=== PATIENT | female | born 1945 | race Hispanic/Latino ===

== ENCOUNTER 2019-12-02 13:52 | Emergency (ER) | payer MEDICARE ==
[2019-12-02 14:11] LABS: BASOPHILS % (AUTO) 0.3 % (0.0-5.0); EOSINOPHILS % (AUTO) 1.3 % (0.0-8.0); LYMPHOCYTES % (AUTO) 34.9 % (21.0-51.0); MEAN CORPUSCULAR HEMOGLOBIN 27.7 pg (27.0-33.0); MEAN CORPUSCULAR HGB CONC 32.5 g/dL (32.0-36.0); MEAN CORPUSCULAR VOLUME 85.3 fL (79-99); NEUTROPHILS % (AUTO) 57.2 % (40.0-77.0); PLATELET COUNT (AUTO) 356 K/uL (130-400); RED BLOOD CELL COUNT(AUTO) 4.22 MIL/uL (4.00-5.50); WHITE BLOOD COUNT (AUTO) 12.1 K/uL (4.8-10.8)
[2019-12-02 14:25] LABS: CREATININE 0.7 mg/dL (0.5-1.5); INR 0.92 (0.85-1.15); PARTIAL THROMBOPLASTIN TIME 27.3 SEC (26.3-35.5); POTASSIUM 3.5 mmol/L (3.5-5.1)
[2019-12-02 14:30] LABS: ALBUMIN 3.8 g/dL (3.5-5.0); BILIRUBIN,TOTAL 0.3 mg/dL (0.2-1.0); TOTAL PROTEIN, SERUM 7.5 g/dL (6.0-8.3)
[2019-12-02] MEDS ORDERED: ONDANSETRON HCL 4 MG/2 ML VIAL ONE (14:34)
== END 2019-12-02 16:11 | disposition short-term general hospital (02) ==
LOC: EDH 13:52
DX: I61.8 Other nontraumatic intracerebral hemorrhage (principal); R47.81 Slurred speech; M19.90 Unspecified osteoarthritis, unspecified site
CPT/HCPCS: 36415; 70450; 71045; 80053; 82550; 82948; 83721; 84484; 85025; 85610; 85730; 93005; 96374; 99291; J2405

== ENCOUNTER 2019-12-20 21:25 | Emergency (ER) | payer MEDICARE ==
[2019-12-20 22:14] LABS: BASOPHILS % (AUTO) 0.4 % (0.0-5.0); EOSINOPHILS % (AUTO) 2.1 % (0.0-8.0); HEMATOCRIT 35.3 % (36-48); LYMPHOCYTES % (AUTO) 37.3 % (21.0-51.0); MEAN CORPUSCULAR HEMOGLOBIN 28.1 pg (27.0-33.0); MEAN CORPUSCULAR HGB CONC 32.6 g/dL (32.0-36.0); MEAN CORPUSCULAR VOLUME 86.3 fL (79-99); MONOCYTES % (AUTO) 6.8 % (3.0-13.0); NEUTROPHILS % (AUTO) 53.2 % (40.0-77.0); PLATELET COUNT (AUTO) 356 K/uL (130-400); RED BLOOD CELL COUNT(AUTO) 4.09 MIL/uL (4.00-5.50); RED CELL DISTRIBUTION WIDTH 14.5 % (11.0-15.5); WHITE BLOOD COUNT (AUTO) 8.4 K/uL (4.8-10.8)
[2019-12-20 22:33] LABS: CREATININE 0.8 mg/dL (0.5-1.5); POTASSIUM 4.5 mmol/L (3.5-5.1)
[2019-12-20 22:34] LABS: INR 0.91 (0.85-1.15); PARTIAL THROMBOPLASTIN TIME 25.8 SEC (26.3-35.5); PROTHROMBIN TIME 9.9 SEC (9.6-11.6)
[2019-12-20 22:38] LABS: ALBUMIN 3.9 g/dL (3.5-5.0); BILIRUBIN,TOTAL 0.2 mg/dL (0.2-1.0); TOTAL PROTEIN, SERUM 7.5 g/dL (6.0-8.3)
[2019-12-20 22:46] LABS: B-TYPE NATRIURETIC PEPTIDE 31 pg/mL (0-100)
== END 2019-12-20 23:25 | disposition home or self-care (01) ==
LOC: EDH 21:25
DX: R04.0 Epistaxis (principal); N95.1 Menopausal and female climacteric states; R03.0 Elevated blood-pressure reading, without diagnosis of hypertension; M19.90 Unspecified osteoarthritis, unspecified site; Z90.49 Acquired absence of other specified parts of digestive tract; Z90.710 Acquired absence of both cervix and uterus; Z79.899 Other long term (current) drug therapy
CPT/HCPCS: 36415; 71045; 80053; 82550; 83605; 83880; 84484; 85025; 85610; 85730; 93005

== ENCOUNTER 2020-04-29 01:46 | Inpatient (IN) | payer MEDICARE ==
[~2020-04-29] VITALS: Ht 149.9 cm; Wt 60.8 kg
[2020-04-29 02:12] LABS: BASOPHILS % (AUTO) 0.3 % (0.0-5.0); EOSINOPHILS % (AUTO) 2.4 % (0.0-8.0); HEMATOCRIT 33.6 % (36-48); LYMPHOCYTES % (AUTO) 29.1 % (21.0-51.0); MEAN CORPUSCULAR HEMOGLOBIN 29.1 pg (27.0-33.0); MEAN CORPUSCULAR HGB CONC 33.6 g/dL (32.0-36.0); MEAN CORPUSCULAR VOLUME 86.6 fL (79-99); NEUTROPHILS % (AUTO) 61.4 % (40.0-77.0); PLATELET COUNT (AUTO) 338 K/uL (130-400); RED BLOOD CELL COUNT(AUTO) 3.88 MIL/uL (4.00-5.50); RED CELL DISTRIBUTION WIDTH 13.5 % (11.0-15.5); WHITE BLOOD COUNT (AUTO) 10.6 K/uL (4.8-10.8)
[2020-04-29 02:23] LABS: CREATININE 0.9 mg/dL (0.5-1.5); POTASSIUM 3.5 mmol/L (3.5-5.1)
[2020-04-29] MEDS ORDERED: ONDANSETRON HCL 4 MG/2 ML VIAL ONE (02:24)
[2020-04-29] MEDS ORDERED: MORPHINE SULFATE 2 MG/ML 1ML SYG ONE ×2 (02:25→07:52)
[2020-04-29 02:26] LABS: INR 0.95 (0.85-1.15); PARTIAL THROMBOPLASTIN TIME 24.9 SEC (26.3-35.5); PROTHROMBIN TIME 10.3 SEC (9.6-11.6)
[2020-04-29 02:27] LABS: ALBUMIN 4.1 g/dL (3.5-5.0); BILIRUBIN,TOTAL 0.3 mg/dL (0.2-1.0); TOTAL PROTEIN, SERUM 7.2 g/dL (6.0-8.3)
[2020-04-29] MEDS ORDERED: MORPHINE SULFATE 4 MG/1ML SYG ONE (04:04)
[2020-04-29] MEDS ORDERED: DIPHENHYDRAMINE HCL 25 MG CAPSULE PO PRN (04:30)
[2020-04-29] MEDS ORDERED: ACETAMINOPHEN 325 MG TAB PO PRN ×2 (04:30)
[2020-04-29] MEDS ORDERED: NITROGLYCERIN 0.4 MG SL TAB SL PRN (04:30)
[2020-04-29] MEDS ORDERED: HYDROCODONE/ACETAMINOPHEN 5/325 MG TAB PO PRN (04:30)
[2020-04-29 05:52] LABS: CREATINE KINASE, TOTAL 92 U/L (21-232); MYOGLOBIN 51 ng/mL (10-92); TROPONIN I < 0.04 ng/mL (0.00-0.06)
[2020-04-29] MEDS ORDERED: SODIUM CHLORIDE 0.9% 1000ML 1,000 ML IV ONE (08:22)
[2020-04-29] MEDS ORDERED: ENOXAPARIN SODIUM 30 MG/0.3 ML SQ SCH (09:00)
[2020-04-29] MEDS ORDERED: FENTANYL CITRATE PF 50 MCG/1 ML 2ML VIAL ONE (13:44)
[2020-04-29] MEDS: SODIUM CHLORIDE 0.9% 1000ML 1,000 ML IV SCH ×3 (14:18→23:23)
[2020-04-29] MEDS ORDERED: LIDOCAINE 5% TOPICAL PATCH TP ONE (17:52)
[2020-04-29 19:30] VITALS: BP 127/52
[2020-04-29] MEDS: HYDROCODONE/ACETAMINOPHEN 5/325 MG TAB PO PRN (19:52)
[2020-04-29] MEDS: FAMOTIDINE 20MG TAB 20 MG TAB PO SCH ×2 (19:52→21:32)
[2020-04-29] MEDS ORDERED: HYDR200T4 PO (20:05)
[2020-04-29] MEDS ORDERED: PANT40TA54 PO (20:10)
[2020-04-29] MEDS ORDERED: TOPI50TA24 PO (20:10)
[2020-04-29] MEDS ORDERED: CYAN-35 PO (20:10)
[2020-04-29] MEDS ORDERED: FLU15OS OU (20:10)
[2020-04-29] MEDS ORDERED: CITA-107 PO (20:10)
[2020-04-29] MEDS ORDERED: FOLI0.8C PO (20:10)
[2020-04-29] MEDS ORDERED: NAPR-1023 PO (20:10)
[2020-04-29] MEDS: MORPHINE SULFATE 2 MG/ML 1ML SYG IVP PRN (21:32)
[2020-04-29 23:52] VITALS: BP 111/54
[2020-04-30] VITALS (23 sets, daily range): BP systolic 94–127; BP diastolic 36–70
[2020-04-30] MEDS: MORPHINE SULFATE 2 MG/ML 1ML SYG IVP PRN ×3 (01:31→06:06)
[2020-04-30 05:53] LABS: HEMATOCRIT 31.5 % (36-48); MEAN CORPUSCULAR HEMOGLOBIN 28.5 pg (27.0-33.0); MEAN CORPUSCULAR HGB CONC 32.1 g/dL (32.0-36.0); PLATELET COUNT (AUTO) 278 K/uL (130-400); RED BLOOD CELL COUNT(AUTO) 3.54 MIL/uL (4.00-5.50); RED CELL DISTRIBUTION WIDTH 13.7 % (11.0-15.5); WHITE BLOOD COUNT (AUTO) 7.9 K/uL (4.8-10.8)
[2020-04-30 06:07] LABS: ALBUMIN 2.7 g/dL (3.5-5.0); BILIRUBIN,TOTAL 0.3 mg/dL (0.2-1.0); CREATININE 0.8 mg/dL (0.5-1.5); MAGNESIUM 1.7 mg/dL (1.80-2.40); POTASSIUM 3.9 mmol/L (3.5-5.1); TOTAL PROTEIN, SERUM 5.6 g/dL (6.0-8.3)
[2020-04-30] MEDS: ONDANSETRON HCL 4 MG/2 ML VIAL IV PRN ×3 (06:37→20:43)
[2020-04-30 07:18] LABS: LYMPHOCYTES % (MANUAL) 22 % (22-44); MAN.DIFF COMMENT-IMPRESSION MANUAL DIFFERENTIAL; MONOCYTES % (MANUAL) 7 % (2-9); PLATELET MORPHOLOGY COMMENT ADEQUATE; SEGMENTED NEUTROPHILS % 71 % (40-70)
[2020-04-30] MEDS ORDERED: MAGNESIUM 2GM PREMIX 50ML 50 ML IV PRN (08:15)
[2020-04-30] MEDS: SODIUM CHLORIDE 0.9% 1000ML 1,000 ML IV SCH ×2 (08:38→20:23)
[2020-04-30] MEDS: HYDROXYCHLOROQUINE SULFATE 200 MG TAB PO SCH (09:00)
[2020-04-30] MEDS: FOLIC ACID 1 MG TABLET PO SCH (09:00)
[2020-04-30] MEDS: [UNRECOGNIZED DRUG - OTHER] OU SCH ×4 (09:00→20:23)
[2020-04-30] MEDS: CYANOCOBALAMIN (VITAMIN B-12) 1,000 MCG TABLET PO SCH (09:00)
[2020-04-30] MEDS: FAMOTIDINE 20MG TAB 20 MG TAB PO SCH ×2 (09:00→20:33)
[2020-04-30] MEDS ORDERED: CEFAZOLIN SODIUM 1 GM VIAL ONE (13:13)
[2020-04-30] MEDS ORDERED: LIDOCAINE PF 2% 5ML ABBOJECT ONE (13:26)
[2020-04-30] MEDS ORDERED: SUCCINYLCHOLINE CHLORIDE 20 MG/ML 10 ML VIAL ONE (13:26)
[2020-04-30] MEDS ORDERED: KETAMINE 50MG/ML SYRINGE 50 MG/ML DISP.SYRIN IV ONE (13:27)
[2020-04-30] MEDS ORDERED: PROPOFOL 10 MG/ML 20ML VIAL IV ONE (13:27)
[2020-04-30] MEDS ORDERED: ROCURONIUM 10MG/1ML SYR 10 MG/ML ML ONE (13:40)
[2020-04-30] MEDS ORDERED: EPHEDRINE SULFATE 50 MG/ML AMPULE ONE (13:51)
[2020-04-30] MEDS ORDERED: ROPIVACAINE 0.5% 5MG/ML 30ML IJ ONE (14:32)
[2020-04-30] MEDS ORDERED: GLYCOPYRROLATE 1 MG/5 ML SYRINGE ONE (14:35)
[2020-04-30] MEDS ORDERED: NEOSTIGMINE 5MG/5ML SYR IV ONE (14:35)
[2020-04-30] MEDS ORDERED: ONDANSETRON HCL 4 MG/2 ML VIAL ONE (14:46)
--- NOTE | 2020-04-30 17:11 | NUR ---
DCP IA done by Asif Vincent RN. As per Asif pt is very independent prior to admission, lives at home alone, family lives close by. Denies any equipments/services. Feels safe to go back home, still drives, family able to assist with transportation and needs as necessary. Pt and family open to rehab if necessary vs home w/HH. DC plan to home w/HH vs SNF/IRU. Will await PT notes and MD recommendations. CM to continue to follow up. Addendum: 04/30/20 at 1714 by WAN MENA LVN CM Amended: Links added.
[2020-04-30] MEDS: HYDROCODONE/ACETAMINOPHEN 5/325 MG TAB PO PRN (18:51)
[2020-04-30] MEDS ORDERED: HYDROMORPHONE HCL 0.5 MG/0.5 ML ML ONE (19:10)
[2020-04-30] MEDS ORDERED: HYDROMORPHONE HCL 0.5 MG/0.5 ML ML IVP PRN (19:15)
[2020-04-30] MEDS: TOPIRAMATE 100 MG TAB PO SCH (20:33)
[2020-04-30] MEDS: HYDROMORPHONE 1 MG/1 ML AMP IVP PRN ×2 (20:35→23:39)
[2020-04-30] MEDS: CEFAZOLIN SODIUM 1 GM VIAL IVP SCH (23:16)
[2020-05-01] VITALS: BP 111/56
[2020-05-01 04:00] VITALS: BP 109/51
[2020-05-01] MEDS: HYDROCODONE/ACETAMINOPHEN 5/325 MG TAB PO PRN ×2 (04:06→11:40)
[2020-05-01 04:11] LABS: BASOPHILS % (AUTO) 0.2 % (0.0-5.0); EOSINOPHILS % (AUTO) 0.3 % (0.0-8.0); HEMATOCRIT 29.2 % (36-48); LYMPHOCYTES % (AUTO) 12.6 % (21.0-51.0); MEAN CORPUSCULAR HEMOGLOBIN 28.7 pg (27.0-33.0); MEAN CORPUSCULAR HGB CONC 32.2 g/dL (32.0-36.0); MONOCYTES % (AUTO) 6.2 % (3.0-13.0); NEUTROPHILS % (AUTO) 80.5 % (40.0-77.0); PLATELET COUNT (AUTO) 255 K/uL (130-400); RED BLOOD CELL COUNT(AUTO) 3.28 MIL/uL (4.00-5.50); RED CELL DISTRIBUTION WIDTH 13.5 % (11.0-15.5); WHITE BLOOD COUNT (AUTO) 9.7 K/uL (4.8-10.8)
[2020-05-01 04:29] LABS: ALBUMIN 2.6 g/dL (3.5-5.0); BILIRUBIN,TOTAL 0.7 mg/dL (0.2-1.0); CREATININE 0.6 mg/dL (0.5-1.5); MAGNESIUM 2.1 mg/dL (1.80-2.40); PHOSPHORUS 2.6 mg/dL (2.5-4.9); POTASSIUM 3.8 mmol/L (3.5-5.1); TOTAL PROTEIN, SERUM 5.6 g/dL (6.0-8.3)
[2020-05-01] MEDS: SODIUM CHLORIDE 0.9% 1000ML 1,000 ML IV SCH ×2 (05:52→13:10)
[2020-05-01] MEDS: CEFAZOLIN SODIUM 1 GM VIAL IVP SCH ×2 (05:52→13:52)
[2020-05-01 08:12] VITALS: BP 98/52
[2020-05-01] MEDS: HYDROXYCHLOROQUINE SULFATE 200 MG TAB PO SCH (08:20)
[2020-05-01] MEDS: CYANOCOBALAMIN (VITAMIN B-12) 1,000 MCG TABLET PO SCH (08:20)
[2020-05-01] MEDS: FAMOTIDINE 20MG TAB 20 MG TAB PO SCH ×2 (08:20→19:30)
[2020-05-01] MEDS: FOLIC ACID 1 MG TABLET PO SCH (08:20)
[2020-05-01] MEDS: [UNRECOGNIZED DRUG - OTHER] OU SCH ×4 (08:28→19:38)
[2020-05-01 11:52] VITALS: BP 95/45
--- NOTE | 2020-05-01 15:00 | NUR ---
CM Note: [facility] and [facility] pending approval CM met with pt discussed MD recommendations for possible placement as pt lives alone, pt verbalized she does not want to go to a rehab facility, she prefers to go back home and has family members that is available if needed. Informed pt will need DME at home, standard walker no wheels and 3 in 1 chair. Pt agreeable for home w/home health and DME. Asked patient if it is ok to call daughter Leena Guzman on facesheet and discuss POC, pt agreeable. Spoke to Leena Guzman in patient's room updated w/POC and patient's decision. Asked daughter if patient will have family members available at home to assist, as per Leena yes family members will be available to assist patient. Made aware pt declined placement and agreeable only to go back home. Daughter agreeable w/patient's decision, given in [id number], per Leena [facility] would be preferred and to inform Judith w/[facility], also agreeable for [facility] for standard walker no wheels and 3 in 1 chair. Shantanu signed for [facility] and [facility]. Faxed order, clinicals, PT to [facility], confirmation received. Spoke to Vaishnavi made aware of new referral and dcp tomorrow. Pt pending approval. Faxed order, clincials, PT to [facility], confirmation received. Spoke to Fernanda [facility], made aware dcp once pt DME received. Primary nurse made aware of above. CM to continue to follow up.
--- NOTE | 2020-05-01 15:49 | NUR ---
dr jiménez has been informed of the results of the radiology test performed pending his anticoagulant recomendation
--- NOTE | 2020-05-01 16:00 | NUR ---
i spoke to dr jiménez on the phone inregards to pt's needing anticoagulation and he stated that he called the orthopedic surgeon and gave him his recomendations that pt is high risk for brain rebleed if given anticoagulants but may give if deems necessary and family is aware of the risk. dr jiménez stated he also spoke to the pt's daughter and informed her of this; i have called dr garcia and informed him of this conversation.
[2020-05-01 16:46] VITALS: BP 119/58
--- NOTE | 2020-05-01 17:59 | NUR ---
Daughter of Brandi Childers has been contacted on 05/01/2020 about the patient. She has been updated on todays patient care, how the patient tolerated medications and the plan of care that was prescribed. Daughter was asked if she had any further questions and she stated that she was all up to date on todays care.
[2020-05-01 18:00] VITALS: BP 124/65
--- NOTE | 2020-05-01 18:02 | NUR ---
Request for medical record sheet filled out and signed by patient. Received information from [facility] and Dr. Barreto was notified of the results.
[2020-05-01] MEDS ORDERED: IBUPROFEN 800 MG TAB ONE (19:27)
[2020-05-01] MEDS ORDERED: IBUPROFEN 800 MG TAB PO PRN (19:30)
[2020-05-01] MEDS: TOPIRAMATE 100 MG TAB PO SCH (19:30)
[2020-05-01] MEDS: ONDANSETRON HCL 4 MG/2 ML VIAL IV PRN (19:30)
[2020-05-01] MEDS: CEPHALEXIN 500 MG CAPSULE PO SCH (21:30)
[2020-05-02] VITALS: BP 121/50
[2020-05-02 04:00] VITALS: BP 132/75
[2020-05-02 06:52] LABS: BASOPHILS % (AUTO) 0.4 % (0.0-5.0); HEMATOCRIT 26.1 % (36-48); LYMPHOCYTES % (AUTO) 12.6 % (21.0-51.0); MEAN CORPUSCULAR HEMOGLOBIN 28.7 pg (27.0-33.0); MEAN CORPUSCULAR HGB CONC 32.6 g/dL (32.0-36.0); MEAN CORPUSCULAR VOLUME 88.2 fL (79-99); MONOCYTES % (AUTO) 8.5 % (3.0-13.0); PLATELET COUNT (AUTO) 223 K/uL (130-400); RED BLOOD CELL COUNT(AUTO) 2.96 MIL/uL (4.00-5.50); RED CELL DISTRIBUTION WIDTH 13.4 % (11.0-15.5); WHITE BLOOD COUNT (AUTO) 10.5 K/uL (4.8-10.8)
[2020-05-02 07:10] LABS: ALBUMIN 2.2 g/dL (3.5-5.0); BILIRUBIN,TOTAL 0.5 mg/dL (0.2-1.0); CREATININE 0.7 mg/dL (0.5-1.5); POTASSIUM 3.5 mmol/L (3.5-5.1); TOTAL PROTEIN, SERUM 5.5 g/dL (6.0-8.3)
[2020-05-02 08:17] VITALS: BP 118/58
[2020-05-02] MEDS: FOLIC ACID 1 MG TABLET PO SCH (08:42)
[2020-05-02] MEDS: HYDROXYCHLOROQUINE SULFATE 200 MG TAB PO SCH (08:42)
[2020-05-02] MEDS: [UNRECOGNIZED DRUG - OTHER] OU SCH ×3 (08:43→16:29)
[2020-05-02] MEDS: CEPHALEXIN 500 MG CAPSULE PO SCH (08:43)
[2020-05-02] MEDS: PANTOPRAZOLE SODIUM 40 MG TABLET.DR PO SCH ×2 (08:43→16:27)
[2020-05-02] MEDS: FAMOTIDINE 20MG TAB 20 MG TAB PO SCH (08:43)
[2020-05-02] MEDS: CYANOCOBALAMIN (VITAMIN B-12) 1,000 MCG TABLET PO SCH (08:43)
[2020-05-02] MEDS: HYDROCODONE/ACETAMINOPHEN 5/325 MG TAB PO PRN ×2 (08:48→16:29)
[2020-05-02] MEDS ORDERED: ASPIRIN 325MG EC TAB 325 MG TABLET.DR PO SCH (09:00)
--- NOTE | 2020-05-02 11:10 | NUR ---
CM Note: [facility] denial, [facility] pending approval and delivery for standard walker no wheels and 3in1 chair. CM spoke to [facility], unable to provider DME as pt's insurance coverage does not allow it, pt is under [facility]. CM met with pt made aware of the above, agreeable for any In network DME that will approve. Faxed order and clinicals to [facility], confirmation received. Spoke to Avila will check benefit. Aware dc plan today/once DME delivered. Pt pending approval and delivery for standard walker no wheels and 3 in 1 chair. Primary nurse made aware of above. CM to cont to follow up.
--- NOTE | 2020-05-02 11:29 | NUR ---
Castaneda catheter removed. 400 cc documented. Patient DVT.
[2020-05-02 11:46] VITALS: BP 102/58
--- NOTE | 2020-05-02 13:27 | NUR ---
CM Note: [facility] approval CM spoke to Vaishnavi [facility], pt has approval. Primary nurse aware. Safe to DC once DME has approval and delivered standard walker no wheels and 3in1 chair in pt's room. CM to continue to follow up.
--- NOTE | 2020-05-02 15:38 | NUR ---
CM Note: [facility] approval, en route to deliver DME CM spoke to [facility], pt has approval for standard walker no wheels and 3in1 chair, currently on his way to deliver from [facility] 45min. Primary nurse made aware. Safe to DC once DME delivered. Primary nurse aware. CM to cont to follow.
[2020-05-02 16:42] VITALS: BP 111/56
[2020-05-02] MEDS ORDERED: LUBIPROSTONE 24 MCG CAP PO SCH (16:45)
--- NOTE | 2020-05-02 17:00 | NUR ---
CM Note: [facility] delivered DME CM verified DME standard walker no wheels, 3 in 1 chair delivered, picked up from ED and dropped off in pt's room. Pt safe to DC via private car. Primary nurse aware. CM to cont to follow up.
--- NOTE | 2020-05-02 17:45 | NUR ---
DISCHARGE PATIENT GIVEN DISCHARGE INSTRUCTIONS AND EDUCATION ON FOLLOW UP APPOINTMENTS, KEEP DRESSING CLEAN AND DRY, NEW RX (KEFLEX, TRAMADOL), AND HOME HEALTH. PATIENT VERBALIZED UNDERSTANDING OF ALL EDUCATION GIVEN VIA TEACH BACK. NO DISTRESS NOTED UPON DISCHARGE. PATIENT LEFT VIA WHEELCHAIR, FAMILY AT SIDE, IV DISCONTINUED, CATHETER INTACT.
== END 2020-05-02 17:50 | disposition home health service (06) | DRG 470 ==
LOC: EDH 01:46 → EDHIP 04:15 → 3AH 19:32
PROVIDERS: ADMIT Family Medicine; ATTEND Family Medicine
PROC: 0SRS039 Replacement of Left Hip Joint, Femoral Surface with Ceramic Synthetic Substitute, Cemented, Open Approach (ICD-10-PCS; principal; 2020-04-30 13:55)
PROC: 3E0T3BZ Introduction of Anesthetic Agent into Peripheral Nerves and Plexi, Percutaneous Approach (ICD-10-PCS; 2020-04-30 13:55)
DX: S72.002A Fracture of unspecified part of neck of left femur, initial encounter for closed fracture (principal); M19.90 Unspecified osteoarthritis, unspecified site; G43.909 Migraine, unspecified, not intractable, without status migrainosus; K21.9 Gastro-esophageal reflux disease without esophagitis; G89.18 Other acute postprocedural pain; W01.0XXA Fall on same level from slipping, tripping and stumbling without subsequent striking against object, initial encounter; Y93.89 Activity, other specified; Y92.098 Other place in other non-institutional residence as the place of occurrence of the external cause; Y99.8 Other external cause status; Z86.73 Personal history of transient ischemic attack (TIA), and cerebral infarction without residual deficits; Z90.710 Acquired absence of both cervix and uterus; Z83.6 Family history of other diseases of the respiratory system
CPT/HCPCS: 36415; 70450; 72192; 80053; 82550; 83735; 83874; 84100; 84484; 85025; 85610; 85730; 93005; 93306; 93356; 97039; C1776; G0378; J0330; J0690; J1170; J2001; J2270; J2405; J2704; J2710; J2795; J3010; J3475; J3490; J7030

== ENCOUNTER → 2020-06-19 | Outpatient (CLI) | payer MEDICARE ==
[~2020-06-19] MED LIST: CITA-107 PO; CYAN-35 PO; FLU15OS OU; FOLI0.8C PO; HYDR200T4 PO; NAPR-1023 PO; PANT40TA54 PO; TOPI50TA24 PO
== END | disposition home or self-care (01) ==
LOC: RAH 12:53
PROVIDERS: ATTEND Otolaryngology
DX: J32.9 Chronic sinusitis, unspecified (principal); R04.0 Epistaxis
CPT/HCPCS: 70486

== ENCOUNTER → 2020-07-18 | Outpatient (CLI) | payer MEDICARE | END | disposition home or self-care (01) | LOC: RAH 08:20 | PROVIDERS: ATTEND Specialist | DX: Z12.31 Encounter for screening mammogram for malignant neoplasm of breast (principal); N64.89 Other specified disorders of breast | CPT/HCPCS: 77067 ==

== ENCOUNTER 2020-08-11 13:26 | Emergency (ER) | payer MEDICARE ==
[2020-08-11 14:39] LABS: BASOPHILS % (AUTO) 0.4 % (0.0-5.0); EOSINOPHILS % (AUTO) 1.5 % (0.0-8.0); HEMATOCRIT 35.8 % (36-48); LYMPHOCYTES % (AUTO) 29.8 % (21.0-51.0); MEAN CORPUSCULAR HEMOGLOBIN 28.1 pg (27.0-33.0); MEAN CORPUSCULAR HGB CONC 32.7 g/dL (32.0-36.0); MEAN CORPUSCULAR VOLUME 86.1 fL (79-99); MONOCYTES % (AUTO) 6.9 % (3.0-13.0); NEUTROPHILS % (AUTO) 60.9 % (40.0-77.0); PLATELET COUNT (AUTO) 412 K/uL (130-400); RED BLOOD CELL COUNT(AUTO) 4.16 MIL/uL (4.00-5.50); RED CELL DISTRIBUTION WIDTH 14.2 % (11.0-15.5); WHITE BLOOD COUNT (AUTO) 7.4 K/uL (4.8-10.8)
[2020-08-11 14:52] LABS: CREATININE 0.7 mg/dL (0.5-1.5)
[2020-08-11 14:56] LABS: ALBUMIN 4.2 g/dL (3.5-5.0); BILIRUBIN,TOTAL 0.3 mg/dL (0.2-1.0); TOTAL PROTEIN, SERUM 7.8 g/dL (6.0-8.3)
== END 2020-08-11 16:05 | disposition home or self-care (01) ==
LOC: EDH 13:26
DX: I10 Essential (primary) hypertension (principal); M19.90 Unspecified osteoarthritis, unspecified site; Z86.73 Personal history of transient ischemic attack (TIA), and cerebral infarction without residual deficits; Z90.49 Acquired absence of other specified parts of digestive tract; Z90.710 Acquired absence of both cervix and uterus; Z98.890 Other specified postprocedural states
CPT/HCPCS: 36415; 71045; 80053; 84484; 85025; 93005

== ENCOUNTER → 2020-08-15 | Outpatient (CLI) | payer MEDICARE | END | disposition home or self-care (01) | LOC: RAH 08:21 | PROVIDERS: ATTEND Internal Medicine Cardiovascular Disease | DX: R07.89 Other chest pain (principal) | CPT/HCPCS: 93306; 93356 ==

== ENCOUNTER → 2020-08-16 | Outpatient (CLI) | payer MEDICARE ==
[~2020-08-16] MED LIST changes: +REGADENOSON 0.4 MG/5 ML PF SYG IVP SCH
== END | disposition home or self-care (01) ==
LOC: SHCH 08:51
PROVIDERS: ATTEND Internal Medicine Cardiovascular Disease
DX: R07.89 Other chest pain (principal)
CPT/HCPCS: 78452; 93017; 96374; A9500 ×2; J2785

== ENCOUNTER 2020-10-11 15:26 | Observation (INO) | payer MEDICARE ==
[~2020-10-11] VITALS: Ht 149.9 cm; Wt 57.3 kg
[~2020-10-11 15:26] MED LIST changes: -REGADENOSON 0.4 MG/5 ML PF SYG IVP SCH
[2020-10-11 15:40] LABS: BASOPHILS % (AUTO) 0.5 % (0.0-5.0); EOSINOPHILS % (AUTO) 2.7 % (0.0-8.0); HEMATOCRIT 34.4 % (36-48); LYMPHOCYTES % (AUTO) 39.8 % (21.0-51.0); MEAN CORPUSCULAR HGB CONC 32.8 g/dL (32.0-36.0); MEAN CORPUSCULAR VOLUME 88.4 fL (79-99); NEUTROPHILS % (AUTO) 45.6 % (40.0-77.0); PLATELET COUNT (AUTO) 369 K/uL (130-400); RED BLOOD CELL COUNT(AUTO) 3.89 MIL/uL (4.00-5.50); RED CELL DISTRIBUTION WIDTH 13.5 % (11.0-15.5); WHITE BLOOD COUNT (AUTO) 7.3 K/uL (4.8-10.8)
[2020-10-11 15:57] LABS: CREATININE 0.9 mg/dL (0.5-1.5); INR 0.98 (0.85-1.15); POTASSIUM 3.9 mmol/L (3.5-5.1); PROTHROMBIN TIME 10.7 SEC (9.6-11.6)
[2020-10-11 15:58] LABS: PARTIAL THROMBOPLASTIN TIME 25.7 SEC (26.3-35.5)
[2020-10-11 16:02] LABS: ALBUMIN 3.9 g/dL (3.5-5.0); BILIRUBIN,TOTAL 0.2 mg/dL (0.2-1.0); TOTAL PROTEIN, SERUM 7.4 g/dL (6.0-8.3)
[2020-10-11] MEDS ORDERED: IOHEXOL 350 MG/ML 100ML INFUS..BTL IV ONE (16:23)
[2020-10-11 17:21] LABS: APPEARANCE,URINE Clear (CLEAR); BILIRUBIN,URINE Negative (NEGATIVE); COLOR,URINE Yellow (YELLOW); GLUCOSE, URINE (UA) Negative (NEGATIVE); KETONES,URINE Negative (NEGATIVE); LEUKOCYTE ESTERASE ,URINE Trace (NEGATIVE); NITRATE,URINE Negative (NEGATIVE); OCCULT BLOOD,URINE Negative (NEGATIVE); PROTEIN,URINE Negative (NEGATIVE); UROBILINOGEN,URINE 0.2 mg/dL (0.2-1.0)
[2020-10-11 17:29] LABS: AMPHET/METH SCREEN,URINE NEGATIVE (NEGATIVE); BARBITURATE SCREEN, URINE NEGATIVE (NEGATIVE); BENZODIAZEPINES SCREEN,URINE NEGATIVE (NEGATIVE); CANNABINOID SCREEN,URINE NEGATIVE (NEGATIVE); COCAINE SCREEN,URINE NEGATIVE (NEGATIVE); OPIATE SCREEN,URINE NEGATIVE (NEGATIVE); PHENCYCLIDINE SCREEN,URINE NEGATIVE (NEGATIVE)
[2020-10-11 17:33] LABS: BACTERIA,URINE Rare /HPF (None Seen); RBC,URINE 0-1 /HPF (0-1); SQUAMOUS EPITHELIAL CELL,UR Rare /HPF (0-2)
[2020-10-11] MEDS ORDERED: ACETAMINOPHEN 325 MG TAB PO PRN (19:00)
[2020-10-11] MEDS: SODIUM CHLORIDE 0.9% 1000ML 1,000 ML IV SCH (19:00)
[2020-10-11] MEDS ORDERED: ASPIRIN 81MG TAB.CHEW ONE (19:02)
[2020-10-11] MEDS ORDERED: LISINOPRIL 20 MG TABLET ONE (19:03)
[2020-10-11] MEDS ORDERED: ONDANSETRON HCL 4 MG/2 ML VIAL IVP PRN (19:15)
[2020-10-11] MEDS ORDERED: SODIUM CHLORIDE 0.9% 1000ML 1,000 ML IV ONE (19:30)
[2020-10-11] MEDS: CARVEDILOL 3.125 MG TABLET PO SCH (21:00)
[2020-10-11 22:19] VITALS: BP 122/45
[2020-10-12] MEDS ORDERED: CELE200 PO (01:13)
[2020-10-12] MEDS ORDERED: LISI10TA24 PO ×2 (01:13→07:56)
[2020-10-12] MEDS ORDERED: ASPI-1197 PO (01:13)
[2020-10-12] MEDS ORDERED: CYCL5TAB PO (01:13)
[2020-10-12] MEDS ORDERED: CARV3.12 PO (01:13)
[2020-10-12 04:00] VITALS: BP 106/62
[2020-10-12] MEDS ORDERED: CARB15DR OU (04:50)
[2020-10-12] MEDS ORDERED: CYCL30DR OU (04:50)
[2020-10-12] MEDS: SODIUM CHLORIDE 0.9% 1000ML 1,000 ML IV SCH (05:10)
[2020-10-12 08:24] VITALS: BP 113/58
[2020-10-12] MEDS ORDERED: PNEUMOCOCCAL VACCINE POLYVALENT 0.5 ML/VIAL [PPV] IM SCH ×2 (08:30→10:00)
[2020-10-12] MEDS: CARVEDILOL 3.125 MG TABLET PO SCH (09:00)
[2020-10-12] MEDS ORDERED: LISINOPRIL 10 MG TABLET PO SCH ×2 (09:00→21:00)
[2020-10-12] MEDS ORDERED: ASPIRIN 81MG TAB.CHEW PO SCH (09:00)
[2020-10-12] MEDS ORDERED: CITALOPRAM 20 MG TABLET PO SCH (09:00)
[2020-10-12] MEDS ORDERED: HYDROXYCHLOROQUINE SULFATE 200 MG TAB PO SCH (09:00)
[2020-10-12] MEDS ORDERED: PANTOPRAZOLE SODIUM 40 MG TABLET.DR PO SCH (09:24)
[2020-10-12] MEDS ORDERED: MAG HYDROX/AL HYDROX/SIMETH ES 30 ML SUSP UDCUP PO PRN (09:30)
[2020-10-12] MEDS ORDERED: DiphenhydrAMINE HCL 50 MG/ML VIAL IV PRN (09:30)
[2020-10-12] MEDS ORDERED: ONDANSETRON HCL 4 MG/2 ML VIAL IV PRN (09:30)
[2020-10-12] MEDS ORDERED: POTASSIUM CHLORIDE 20 MEQ ERTAB PO PRN (09:30)
[2020-10-12] MEDS ORDERED: ACETAMINOPHEN 325 MG TAB PO PRN ×2 (09:30)
[2020-10-12] MEDS ORDERED: DIPHENHYDRAMINE HCL 25 MG CAPSULE PO PRN (09:30)
[2020-10-12] MEDS ORDERED: LACTULOSE 20 GM/30 ML UDCUP PO PRN (09:30)
[2020-10-12] MEDS ORDERED: ATORVASTATIN CALCIUM 20 MG TABLET PO SCH (09:30)
[2020-10-12] MEDS ORDERED: CLOPIDOGREL BISULFATE 75 MG TAB PO SCH (09:30)
[2020-10-12] MEDS ORDERED: POTASSIUM CHLORIDE 10% ELIXIR 20 MEQ/15 ML UDCUP PO PRN (09:30)
[2020-10-12] MEDS ORDERED: LIDOCAINE HCL-MPF 1% 2ML VIAL IV PRN (09:30)
[2020-10-12] MEDS ORDERED: POTASSIUM CHLORIDE 20MEQ/100ML 100 ML IV PRN (09:30)
[2020-10-12 11:00] VITALS: BP 112/58
[2020-10-12] MEDS ORDERED: ROSU5TAB12 PO (14:13)
[2020-10-12] MEDS ORDERED: CLOP75TA14 PO (14:13)
[2020-10-12] MEDS ORDERED: CARVEDILOL 3.125 MG TABLET PO SCH (21:00)
[2020-10-13] MEDS ORDERED: CITALOPRAM 20 MG TABLET PO SCH (09:00)
[2020-10-13] MEDS ORDERED: HYDROXYCHLOROQUINE SULFATE 200 MG TAB PO SCH (09:00)
[2020-10-13] MEDS ORDERED: ASPIRIN 81MG TAB.CHEW PO SCH (09:00)
[2020-10-13] MEDS ORDERED: ATORVASTATIN CALCIUM 20 MG TABLET PO SCH (21:00)
== END 2020-10-12 16:00 | disposition home or self-care (01) ==
LOC: EDH 15:26 → EDHIP 18:35 → 3BH 21:55
PROVIDERS: ADMIT Internal Medicine; ATTEND Internal Medicine
DX: G45.9 Transient cerebral ischemic attack, unspecified (principal); I11.9 Hypertensive heart disease without heart failure; M19.90 Unspecified osteoarthritis, unspecified site; M06.9 Rheumatoid arthritis, unspecified; K21.9 Gastro-esophageal reflux disease without esophagitis; F32.1 Major depressive disorder, single episode, moderate; I42.9 Cardiomyopathy, unspecified; I70.0 Atherosclerosis of aorta; Z23 Encounter for immunization; Z86.73 Personal history of transient ischemic attack (TIA), and cerebral infarction without residual deficits; Z87.440 Personal history of urinary (tract) infections; Z90.710 Acquired absence of both cervix and uterus; Z90.49 Acquired absence of other specified parts of digestive tract; Z79.82 Long term (current) use of aspirin; Z79.02 Long term (current) use of antithrombotics/antiplatelets; Z79.899 Other long term (current) drug therapy
CPT/HCPCS: 36415; 70450; 70496; 70498; 70551; 71045; 80053; 80305; 81001; 82550; 82948 ×2; 83721; 84484; 85025; 85610; 85730; 90732; 92522; 92610; 93005; 93880; 96360; 96361; 99285; G0009; G0378 ×7; J7030 ×2; Q9967

== ENCOUNTER → 2020-11-28 | Outpatient (CLI) | payer MEDICARE ==
[~2020-11-28] MED LIST changes: +ASPI-1197 PO; +CARB15DR OU; +CARV3.12 PO; +CLOP75TA14 PO; -CYAN-35 PO; +CYCL30DR OU; -FLU15OS OU; -FOLI0.8C PO; +LISI10TA24 PO; -NAPR-1023 PO; +ROSU5TAB12 PO; -TOPI50TA24 PO
== END | disposition home or self-care (01) ==
LOC: RAH 09:38
PROVIDERS: ATTEND Internal Medicine
DX: M47.812 Spondylosis without myelopathy or radiculopathy, cervical region (principal); M48.02 Spinal stenosis, cervical region
CPT/HCPCS: 72040

== ENCOUNTER → 2020-12-13 | Outpatient (CLI) | payer MEDICARE ==
[2020-12-13 09:30] LABS: BASOPHILS % (AUTO) 0.4 % (0.0-5.0); EOSINOPHILS % (AUTO) 2.9 % (0.0-8.0); HEMATOCRIT 33.7 % (36-48); LYMPHOCYTES % (AUTO) 26.5 % (21.0-51.0); MEAN CORPUSCULAR VOLUME 90.6 fL (79-99); MONOCYTES % (AUTO) 8.8 % (3.0-13.0); NEUTROPHILS % (AUTO) 61.1 % (40.0-77.0); PLATELET COUNT (AUTO) 381 K/uL (130-400); RED BLOOD CELL COUNT(AUTO) 3.72 MIL/uL (4.00-5.50); RED CELL DISTRIBUTION WIDTH 12.8 % (11.0-15.5)
[2020-12-13 09:56] LABS: ALBUMIN 3.2 g/dL (3.5-5.0); BILIRUBIN,TOTAL 0.2 mg/dL (0.2-1.0); CREATININE 0.8 mg/dL (0.5-1.5); POTASSIUM 5.1 mmol/L (3.5-5.1); THYROID STIMULATING HORMONE 0.97 uIU/mL (0.36-3.74); TOTAL PROTEIN, SERUM 6.7 g/dL (6.0-8.3)
== END | disposition home or self-care (01) ==
LOC: LAB 08:52
PROVIDERS: ATTEND Internal Medicine
DX: D47.3 Essential (hemorrhagic) thrombocythemia (principal); K21.9 Gastro-esophageal reflux disease without esophagitis; I10 Essential (primary) hypertension; M19.90 Unspecified osteoarthritis, unspecified site
CPT/HCPCS: 36415; 80053; 80061; 84443; 85025